=== PATIENT | female | born 1945 | race Caucasian/White ===

== ENCOUNTER → 2022-02-06 | Outpatient (CLI) | payer MEDICARE, OTHER ==
[~2022-02-06] MED LIST: FAMO20; LEVSOD125 PO; OXYACE5T PO; PRAV20 PO; PROM25 PO; ROFE25
== END | disposition home or self-care (01) ==
LOC: LAB 16:21 → LAB SHORT 16:21
DX: N39.0 Urinary tract infection, site not specified (principal)
CPT/HCPCS: 87077; 87086; 87186

== ENCOUNTER → 2025-05-10 | Outpatient (CLI) | payer MEDICARE, OTHER | LOC: LAB 16:11 → LAB SHORT 16:11 | DX: N39.0 Urinary tract infection, site not specified (principal) | CPT/HCPCS: 87086 ==